=== PATIENT | male | born 2000 | race Two or more races ===

== ENCOUNTER 2021-11-21 11:27 | Emergency (ER) | payer OTHER, SELFPAY ==
[2021-11-21 11:46] VITALS: BP 128/50; PULSE 76; RESP 18; TEMP 36.1; O2SAT 100; BMI 36.0
--- NOTE | 2021-11-21 15:53 | ED_ITS ---
HPI - Back Pain/Injury General Chief Complaint: Back Pain/Injury Stated Complaint: Back pain Time Seen by Provider: 11/21/21 14:49 History of Present Illness HPI Narrative: Patient complains of mid right-sided back pain worse with movement after twisting the wrong way at work 2 days ago, no numbness no weakness no tingling no radiation of pain no changes to bowel or bladder Related Data Previous Rx's Medication Instructions Recorded acetaminophen 500 mg tablet 1,000 mg PO QID PRN pain #30 tabs 11/21/21 ibuprofen 600 mg tablet 600 mg PO Q6H PRN pain #20 tabs 11/21/21 Allergies Allergy/AdvReac Type Severity Reaction Status Date / Time No Known Allergies Allergy Unverified 12/11/19 19:32 [No Known Allergies*] Review of Systems Review of Systems: Positive for back pain worse with movement Negatives are no fever no chills no dizziness or weakness no fainting no feeling faint no headache neck pain or chest pain no shortness of breath no abdominal pain no nausea vomiting or diarrhea no dysuria no frequency no incontinence no changes to bowel or bladder no muscle weakness no difficulty walking no loss of sensation no skin Yes all other systems are reviewed and are negative [facility] Past Medical History Source: nursing notes reviewed Social History Social History Advance Directives: No Advance Directives Information Provided: No Physical Exam Vital Signs: Vital Signs: Last Vital Signs Temp 96.9 F 11/21/21 11:46 Pulse 76 11/21/21 11:46 Resp 18 11/21/21 11:46 BP 128/50 L 11/21/21 11:46 Pulse Ox 100 11/21/21 11:46 O2 Del Method 11/21/21 11:46 BMI result Body Mass Index 36.0 General appearance no discrete distress Head is normocephalic atraumatic Neck is supple Respiratory no distress Abdomen soft nontender The back had tenderness in the right upper mid back, pain easily reproduced with movement There was no CVA tenderness no focal bony tenderness, skin was normal and pain easily reproduced with movement Extremities full range of motion x4 Skin no rash Neuro no focal motor sensory deficits, gait was normal Course Course Course Narrative: Patient with likely back muscle strain is given a work note and analgesics, no neurologic deficits Discharge Plan Discharge Clinical Impression: Back strain Patient Disposition: Home, Self-Care Additional Instructions: You likely strained muscles in her back at work Follow with work connection if needed for work related injury Return any time for any worse condition or concern You could use Tylenol or Motrin as needed This is usually self-limited and gets better by itself in a reasonable time frame an almost all cases Prescriptions: New acetaminophen 500 mg tablet 1,000 mg PO QID PRN (Reason: pain) Qty: 30 0RF ibuprofen 600 mg tablet 600 mg PO Q6H PRN (Reason: pain) Qty: 20 0RF Referrals: [facility] [Provider Group] (Back strain at work) Stand Alone Forms: Work/School Release Interventions: ED Discharge Assessment Last Done: 11/21/21 17:38 Discharge Date/Time: 11/21/21 17:39
== END 2021-11-21 17:39 | disposition home or self-care (01) ==
PROVIDERS: Emergency Provider Emergency Medicine
DX: S29.012A Strain of muscle and tendon of back wall of thorax, initial encounter (principal); X50.1XXA Overexertion from prolonged static or awkward postures, initial encounter; Y93.9 Activity, unspecified; Y92.511 Restaurant or cafe as the place of occurrence of the external cause; Y99.0 Civilian activity done for income or pay
CPT/HCPCS: 99282; 99283

== ENCOUNTER 2021-11-29 17:02 | Emergency (ER) | payer OTHER, SELFPAY ==
--- NOTE | ~2021-11-29 | XR_ITS ---
EXAMINATION: XR LUMBOSACRAL SPINE CLINICAL INFORMATION: Pain for 2 weeks, atraumatic COMPARISON: None TECHNIQUE: Three views of the lumbosacral spine. FINDINGS: Straightening of the normal lumbar lordosis. No subluxation. Vertebral body heights and intervertebral disc heights are maintained. No endplate osteophytes. No pars defects. SI joints appear congruent and intact. No osseous lesion. XR/XR lumbar spine 2-3V IMPRESSION: 1. No subluxation or fracture. 2. Preserved intervertebral disc heights.
[2021-11-29 17:13] VITALS: BP 135/81; PULSE 65; RESP 18; TEMP 36.5; O2SAT 99; BMI 36.0
--- NOTE | 2021-11-29 18:34 | ED.GENADULT ---
HPI - General Adult General Chief complaint: Back Pain/Injury Stated complaint: lower back pain Time Seen by Provider: 11/29/21 18:23 Source: patient History of Present Illness HPI narrative: This is a 21-year-old male complains of pain in his lower back for a few weeks. The patient denies any injury such as lifting or falling. The patient was seen here for this problem on November 21 but states that they told him he does had a muscle strain and prescribed him ibuprofen and acetaminophen. Pain is worse with twisting of his torso. He denies any nausea vomiting, abdominal pain, pain radiating to his legs, numbness or weakness in his legs, urinary continence or incontinence. Related Data Previous Rx's Medication Instructions Recorded acetaminophen 500 mg tablet 1,000 mg PO QID PRN pain #30 tabs 11/21/21 ibuprofen 600 mg tablet 600 mg PO Q6H PRN pain #20 tabs 11/21/21 cyclobenzaprine 10 mg tablet 10 mg PO TID PRN muscle spasm #20 11/29/21 tabs ibuprofen 600 mg tablet 600 mg PO Q6H PRN pain #30 tabs 11/29/21 Allergies Allergy/AdvReac Type Severity Reaction Status Date / Time No Known Allergies Allergy Unverified 12/11/19 19:32 [No Known Allergies*] Review of Systems Review of Systems: Yes all other systems are reviewed and are negative Constitutional: Constitutional: Reports as per HPI and Denies fever(s) Eyes: Eyes: Reports as per HPI and Reports no additional eye complaints ENT: Reports system reviewed and no additional complaints, except as documented, Reports as per HPI, Denies nasal congestion, Denies nasal discharge and Denies sore throat Cardiovascular: Cardiovascular: Reports as per HPI, Denies chest pain and Denies dyspnea Respiratory: Respiratory: Reports as per HPI, Denies cough and Denies dyspnea Gastrointestinal: Gastrointestinal: Reports as per HPI, Denies abdominal pain, Denies diarrhea and Denies vomiting Genitourinary: Genitourinary: Reports as per HPI, Denies hematuria, Denies dysuria and Denies urinary frequency Musculoskeletal: Musculoskeletal: Reports no additional musculoskeletal complaints, Reports back pain and Denies numbness Integumentary/Breasts: Skin/Breast: Reports as per HPI and Denies rash Neurologic: Reports as per HPI, Denies focal weakness and Denies numbness Psychiatric: Psychiatric: Reports no additional psychiatric complaints and Reports as per HPI Endocrine: Endocrine: Reports no additional endocrine complaints and Reports as per HPI Hematologic/Lymphatic: Hematologic/Lymphatic: Reports no additional hematologic/lymphatic complaints, Reports as per HPI and Reports other (No peripheral edema) [facility] Past Medical History Medical History (Updated 11/29/21 @ 22:55 by Genrao Pepper MD) Asthma Surgical History (Updated 11/29/21 @ 21:33 by Faith Peace) Hx of appendectomy Social History Social History Patient Tobacco Use Status: Current someday Tobacco user Smoked in Last 30 Days: Yes Use of substances other than those prescribed or required for medical reasons: No Advance Directives: No Advance Directives Information Provided: No Physical Exam ED Vital Signs: Vital Signs - 24 hr 11/29/21 17:13 11/29/21 21:30 Temperature 97.7 F 97.1 F Pulse Rate 65 57 Respiratory Rate 18 15 Blood Pressure 135/81 122/66 Pulse Oximetry 99 98 Oxygen Delivery Method Room Air Room Air BMI result Body Mass Index 36.0 Const Other: Patient sitting up in a chair. No tenderness to the lumbar spine or to the lumbar back in the musculature. Straight leg test negative bilaterally. General: no acute distress Orientation/consciousness: patient oriented x3 HENMT Head: Yes normal to inspection General nose exam: Normal external nose present Mouth: moist mucous membranes Throat: Yes posterior oropharynx normal, Yes tonsils normal and Yes uvula midline Eyes Eyelids: Yes eyelids normal Conjunctivae: conjunctivae normal Pupils: Equal, round and reactive pupils present Neck Neck: Yes supple Resp Effort & Inspection: normal respiratory effort Auscultation: clear to auscultation bilaterally Cardio Rate: regular rate Rhythm: regular rhythm Heart sounds: S1 normal heart sound present, S2 normal heart sound present, no gallops, no murmurs and no rubs GI Inspection: No distended Palpation (GI): Soft to palpation and nontender Auscultation: normal bowel sounds Skin General skin exam: other (Warm and dry) Neuro General: patient oriented x3 and CN's II-XI intact bilaterally Cranial nerves: Yes Equal, round and reactive pupils present Extrem General: Yes no pedal edema Psych Affect: normal affect Attitude: cooperative Medical Decision Making MDM Narrative Medical decision making narrative: Patient with low back pain for few weeks, has tried ibuprofen without relief. Patient does not seem to be much pain on exam, with no focal tenderness, negative straight leg test. LS-spine x-ray showed no concerning findings. Urinalysis was negative. Patient will be prescribed ibuprofen and Flexeril Lab Data Lab results reviewed: Yes I reviewed the patient's lab results. Labs: Lab Results 11/29/21 Range/Units 21:42 Urine Color Yellow Urine Appearance Clear Urine pH 6.5 (5.0-9.0) Ur Specific Amelia 1.010 (1.005-1.025) Urine Protein Negative (Neg-Trace) mg/dL Urine Glucose (UA) Negative (Negative) mg/dL Urine Ketones Negative (Negative) mg/dL Urine Blood Negative (Negative) Urine Nitrite Negative (Negative) Ur Leukocyte Esterase Negative (Negative) Imaging Data Lumbar spine x-ray: Radiologist's impression: IMPRESSION: ? 1. No subluxation or fracture. 2. Preserved intervertebral disc heights. Discharge Plan Discharge Clinical Impression: Low back pain Patient Disposition: Home, Self-Care Instructions: Acute Low Back Pain (ED) Additional Instructions: Use the ibuprofen and cyclobenzaprine as prescribed. Try to rest your back. Follow up with her primary care physician Prescriptions: New ibuprofen 600 mg tablet 600 mg PO Q6H PRN (Reason: pain) Qty: 30 0RF cyclobenzaprine 10 mg tablet 10 mg PO TID PRN (Reason: muscle spasm) Qty: 20 0RF No Action acetaminophen 500 mg tablet 1,000 mg PO QID PRN (Reason: pain) Qty: 30 0RF ibuprofen 600 mg tablet 600 mg PO Q6H PRN (Reason: pain) Qty: 20 0RF Interventions: ED Discharge Assessment Last Done: 11/29/21 23:01 Discharge Date/Time: 11/29/21 23:01
[2021-11-29 21:30] VITALS: BP 122/66; PULSE 57; RESP 15; TEMP 36.2; O2SAT 98
[2021-11-29 21:54] LABS: Appearance Urine Clear; Color Urine Yellow; Glucose Urine UA Negative (Negative); Leukocyte Esterase Urine Negative (Negative); Nitrite Urine Negative (Negative); PH 6.5 (5.0-9.0); Urine Blood Negative (Negative); Urine Ketones Negative (Negative); Urine Protein Negative (Neg-Trace)
== END 2021-11-29 23:01 | disposition home or self-care (01) ==
PROVIDERS: Emergency Provider Emergency Medicine
DX: M54.50 Low back pain, unspecified (principal); F17.200 Nicotine dependence, unspecified, uncomplicated; Z71.6 Tobacco abuse counseling; Z79.899 Other long term (current) drug therapy
CPT/HCPCS: 72100; 81003; 99283; 99284

== ENCOUNTER 2022-11-30 09:10 | Emergency (ER) | payer OTHER, SELFPAY ==
[2022-11-30 09:30] VITALS: BP 126/51; PULSE 68; RESP 16; TEMP 36.9; O2SAT 98; BMI 35.6
--- NOTE | 2022-11-30 10:12 | ED.GENADULT ---
HPI - General Adult General Chief complaint: General Medical Stated complaint: lump in throat Time Seen by Provider: 11/30/22 10:01 Source: patient Mode of arrival: ambulatory Limitations: no limitations History of Present Illness HPI narrative: 22-year-old male lesion to lower left lip, patient reports that started about 3 days ago, since then he has noted a small lump under his left chin region, he reports the lesions started as a pimple, he tried to pop it and then it got worse. Denies fevers, chills, sore throat, nausea, vomiting, abdominal pain, chest pain, shortness of breath, difficulty swallowing. Related Data Previous Rx's Medication Instructions Recorded acetaminophen 500 mg tablet 1,000 mg (2 x 500 mg) PO QID PRN 11/21/21 pain #30 tabs ibuprofen 600 mg tablet 600 mg PO Q6H PRN pain #20 tabs 11/21/21 cyclobenzaprine 10 mg tablet 10 mg PO TID PRN muscle spasm #20 11/29/21 tabs ibuprofen 600 mg tablet 600 mg PO Q6H PRN pain #30 tabs 11/29/21 doxycycline hyclate 100 mg capsule 100 mg PO BID 10 days #20 caps 11/30/22 prednisone 20 mg tablet 20 mg PO DAILY 5 days #5 tabs 11/30/22 Allergies Allergy/AdvReac Type Severity Reaction Status Date / Time No Known Allergies Allergy Unverified 12/11/19 19:32 [No Known Allergies*] Review of Systems Review of Systems: Constitutional : No Weight loss, No Fever, No Chills, No Fatigue, No Malaise ENT/Mouth : No sore throat, No Rhinorrhea, + lump under chin, Eyes: No Eye Pain, No Swelling, No Redness Cardiovascular : No Chest Pain, No SOB, No Dyspnea on Exertion, No Orthopnea, No Edema, No Palpitations Respiratory : No Cough, No Sputum, No Wheezing Gastrointestinal : No Nausea, No Vomiting, No Diarrhea, No Constipation, No abdominal Pain, No Hematochezia, No Melena Genitourinary : No Dysuria, No Urinary Frequency, No Hematuria, Musculoskeletal : No joint pain, No Myalgias, No Joint Swelling Skin : No Skin Lesions, No rash Neuro : No Weakness, No Numbness, No Dizziness, No Headache All other systems reviewed and are negative Yes all other systems are reviewed and are negative PMFSH Past Medical History Attestation statement: The following information was validated with the patient. Source: old records reviewed and nursing notes reviewed Medical History Asthma Surgical History Hx of appendectomy Social History Social History Patient Tobacco Use Status: Current someday Tobacco user Advance Directives: No Physical Exam ED Vital Signs: Vital Signs - 24 hr 11/30/22 09:30 Temperature 98.4 F Pulse Rate 68 Respiratory Rate 16 Blood Pressure 126/51 L Pulse Oximetry 98 Oxygen Delivery Method Room Air BMI result Body Mass Index 35.6 vss Appearance: Alert.? Oriented X3.? No acute distress.? Head: Normocephalic, atraumatic, no step-offs or deformities Eyes: Pupils equal, round and reactive to light.? ENT: Pharynx normal. Patent airway uvula midline. Normal tonsils b/l. + healing pimple to left lower lip. + LAD to L sub mandibular region. Speaking in full sentences controlling secretions well. Neck: Normal inspection.? Neck supple.? CVS: Normal heart rate and rhythm.? Pulses normal.? Respiratory: No respiratory distress.? Breath sounds normal.? Abdomen: Soft and nontender.? Skin: Skin warm and dry.? Normal skin color.? Normal skin turgor.? Extremities: No lower extremity edema.? No calf ttp. 5/5 strength to bilateral upper and lower extremities Neuro: Oriented X 3.? No motor deficit.? No sensory deficit. CN 2-12 intact Medical Decision Making Medical Decision Making [facility] Narrative: 1014 22 year old male presents w/ lesion to R lower lip and lymphadenopathy X 3 days PE w/ Pharynx normal. Patent airway uvula midline. Normal tonsils b/l. + healing pimple to left lower lip. + LAD to L sub mandibular region. Speaking in full sentences controlling secretions well. This was likely pimple that patient messed with an turned in to open wound, now healing. No signs of abscess at this time, likely reactive lymphadenopathy to left sub mandibular region no signs of gangrene, neck for testing infection, airway compromise threat to her airway. Plan will discharge on low-dose prednisone And doxycycline Differential Diagnosis Differential Diagnoses: The differential diagnosis associated with the presentation includes This was likely pimple that patient messed with an turned in to open wound, now healing. No signs of abscess at this time, likely reactive lymphadenopathy to left sub mandibular region no signs of gangrene, neck for testing infection, airway compromise threat to her airway. Admission/Observation Consideration of admission/observation: Escalation of care including admission/observation considered unlikely Critical Care Time Critical Care Time Critical Care Time: No Discharge Plan Discharge Clinical Impression: Lesion of lip, Lymphadenopathy Patient Disposition: Home, Self-Care Instructions: Lymphadenopathy (ED) Additional Instructions: Take your medications as prescribed. If you were prescribed antibiotics today, it is important that you take your medication to their entirety, do not skip any doses, do not finish them early. Follow-up with your primary care provider this week. Return to the emergency department with new or worsening symptoms. Such as fevers, chills, chest pain, shortness of breath, nausea, vomiting, dizziness, headache, vision changes, lethargy In case of emergency call 911 Prescriptions: New doxycycline hyclate 100 mg capsule 100 mg PO BID 10 Days Qty: 20 0RF prednisone 20 mg tablet 20 mg PO DAILY 5 Days Qty: 5 0RF No Action acetaminophen 500 mg tablet 1,000 mg PO QID PRN (Reason: pain) Qty: 30 0RF ibuprofen 600 mg tablet 600 mg PO Q6H PRN (Reason: pain) Qty: 20 0RF ibuprofen 600 mg tablet 600 mg PO Q6H PRN (Reason: pain) Qty: 30 0RF cyclobenzaprine 10 mg tablet 10 mg PO TID PRN (Reason: muscle spasm) Qty: 20 0RF Referrals: Physician,None [Primary Care Provider] - 2 days Stand Alone Forms: Work/School Release
[2022-11-30 10:15] VITALS: BP 109/48; PULSE 83; RESP 16; O2SAT 97
== END 2022-11-30 11:06 | disposition home or self-care (01) ==
PROVIDERS: Emergency Provider Emergency Medicine
DX: K13.0 Diseases of lips (principal); R59.1 Generalized enlarged lymph nodes; F17.210 Nicotine dependence, cigarettes, uncomplicated; Z71.6 Tobacco abuse counseling; Z79.899 Other long term (current) drug therapy
CPT/HCPCS: 99283

== ENCOUNTER 2024-05-14 13:04 | Emergency (ER) | payer OTHER, SELFPAY ==
[2024-05-14 13:45] VITALS: BP 125/80; PULSE 69; RESP 16; TEMP 36.6; O2SAT 98; BMI 35.0
--- NOTE | 2024-05-14 13:48 | ED_ITS ---
HPI - General Adult General Chief complaint: Upper Respiratory Symptoms Stated complaint: Congestion, Cough Time Seen by Provider: 05/14/24 16:07 Source: patient Mode of arrival: ambulatory Limitations: no limitations History of Present Illness ED Provider: Dr. Corrina Miranda HPI narrative: Patient comes to the emergency room complaining of runny nose, cough for over a month. Patient states that he has been coughing or sneezing so hard that once, he noticed bloody singed sputum. Otherwise: Patient denies any chest pain or shortness of breath. Patient states that he has history of asthma, he has not had full exacerbations but does use his inhaler. Patient states that for years he has not use the inhaler but lately he has been using a few times Related Data Previous Rx's ?Medication ?Instructions ?Recorded acetaminophen 500 mg tablet 1,000 mg (2 x 500 mg) PO QID PRN 11/21/21 pain #30 tabs ibuprofen 600 mg tablet 600 mg PO Q6H PRN pain #20 tabs 11/21/21 cyclobenzaprine 10 mg tablet 10 mg PO TID PRN muscle spasm #20 11/29/21 tabs ibuprofen 600 mg tablet 600 mg PO Q6H PRN pain #30 tabs 11/29/21 doxycycline hyclate 100 mg capsule 100 mg PO BID 10 days #20 caps 11/30/22 prednisone 20 mg tablet 20 mg PO DAILY 5 days #5 tabs 11/30/22 albuterol sulfate 90 mcg/actuation 2 puff inhalation Q4-6H PRN 05/14/24 aerosol inhaler shortness of breath or wheezing #8.5 grams prednisone 50 mg tablet 50 mg PO DAILY #4 tabs 05/14/24 Allergies Allergy/AdvReac Type Severity Reaction Status Date / Time No Known Allergies Allergy Verified 05/14/24 13:47 [No Known Allergies*] Review of Systems Review of Systems: Constitutional : No Weight loss, No Fever, No Chills, No Night Sweats, No Fatigue, No Malaise ENT/Mouth : No Hearing loss, No Ear Pain, No Nasal Congestion, No Sinus Pain, No Hoarseness, complaining of sore throat, complaining of Rhinorrhea, No Swallowing Difficulty Eyes: No Eye Pain, No Swelling, No Redness, No Foreign Body, No Discharge, No Vision Changes Cardiovascular : No Chest Pain, No SOB, No Dyspnea on Exertion, No Orthopnea, No Edema, No Palpitations Respiratory : No Cough, No Sputum, complaining of Wheezing, No Smoke Exposure, No Dyspnea Gastrointestinal : No Nausea, No Vomiting, No Diarrhea, No Constipation, No abdominal Pain, No Hematochezia, No Melena Genitourinary : no irregular bleeding, No Dysuria, No Urinary Frequency, No Hematuria, No Urinary Incontinence, No Urgency, No Flank Pain, No Urinary Flow Changes, No Hesitancy Musculoskeletal : No joint pain, No Myalgias, No Joint Swelling Skin : No Skin Lesions, No rash Neuro : No Weakness, No Numbness, No Paresthesias, No Loss of Consciousness, No Dizziness, No Headache Psych : No Anxiety/Panic, No Depression, No SI/HI/AH/VH, No Social Issues, Heme/Lymph: No Bruising, No Bleeding,No Lymphadenopathy Endocrine : No Polyuria, No Polydipsia, No Temperature Intolerance PMFSH Past Medical History Medical History Asthma Surgical History Hx of appendectomy Social History Social History Alcohol intake: current Alcohol intake frequency: holidays/special occasions only Patient Tobacco Use Status: Current someday Tobacco user Substance Use Type: Marijuana Advance Directives: No Advance Directives Information Provided: Yes Physical Exam ED Vital Signs: Vital Signs - 24 hr 05/14/24 13:45 Temperature 97.8 F Pulse Rate 69 Respiratory Rate 16 Blood Pressure 125/80 Pulse Oximetry 98 Oxygen Delivery Method Room Air BMI result Body Mass Index 35.0 Const Other: Appearance: Alert. Oriented X3. No acute distress. Eyes: Pupils equal, round and reactive to light. ENT: Pharynx normal. Neck: Normal inspection. Neck supple. No lymph nodes noted. No crepitus CVS: Normal heart rate and rhythm. Pulses normal. Normal S1 and S2 Respiratory: No respiratory distress. Breath sounds normal. No Wheezing. No rales Abdomen: Soft and nontender. No rigidity. No distention. Skin: Skin warm and dry. Normal skin color. Normal skin turgor. Extremities: No lower extremity edema. No Lacerations. No Rash Neuro: Oriented X 3. No motor deficit. No sensory deficit. Moving all extremities. No slurred speech. CN 2 through 12 grossly intact Psych: calm, cooperative, normal affect Course Course Course Narrative: RME, this is a rapid medical exam performed by Paul Esparza please refer to primary provider for complete H&P- patient reports flu-like symptoms for the last couple of days. Patient had minimal blood in his nasal discharge. No active epistaxis. Plan for viral swabs, he is well-appearing Medical Decision Making Medical Decision Making MDM Narrative: My interpretation of labs: Patient's labs negative for influenza a and B, RSV and COVID Patient's lungs are clear. Patient was given the 1st dose of prednisone p.o. in the emergency room. At this time, patient does not need not nebulization treatment, patient is not wheezing, has good air movement, normal vitals, oxygen saturation 98% on room air Lab Data Labs: Lab Results 05/14/24 Range/Units 14:56 Influenza Type A (PCR) NEGATIVE (Negative) Influenza Type B (PCR) NEGATIVE (Negative) RSV RNA Qual (PCR) NEGATIVE (Negative) SARS-CoV-2 RNA (RT-PCR) NEGATIVE (Negative) Discharge Plan Discharge Clinical Impression: Viral URI, Asthma Patient Disposition: Home, Self-Care Instructions: Asthma (ED), Viral Syndrome (ED) Additional Instructions: Please follow-up with your primary care physician tomorrow. If you have any worsening or new symptoms, please return to the emergency room or call 911 Prescriptions: New prednisone 50 mg tablet 50 mg PO DAILY Qty: 4 0RF albuterol sulfate 90 mcg/actuation HFA aerosol inhaler 2 puff inhalation Q4-6H PRN (Reason: shortness of breath or wheezing) Qty: 8.5 1RF No Action acetaminophen 500 mg tablet 1,000 mg PO QID PRN (Reason: pain) Qty: 30 0RF ibuprofen 600 mg tablet 600 mg PO Q6H PRN (Reason: pain) Qty: 20 0RF ibuprofen 600 mg tablet 600 mg PO Q6H PRN (Reason: pain) Qty: 30 0RF cyclobenzaprine 10 mg tablet 10 mg PO TID PRN (Reason: muscle spasm) Qty: 20 0RF doxycycline hyclate 100 mg capsule 100 mg PO BID 10 Days Qty: 20 0RF prednisone 20 mg tablet 20 mg PO DAILY 5 Days Qty: 5 0RF Print Language: Occitan
[2024-05-14 15:38] LABS: Influenza A PCR NEGATIVE (Negative); Influenza B PCR NEGATIVE (Negative); Resp Syncy Virus RNA Qual PCR NEGATIVE (Negative); SARS COV2 PCR INHOUSE NEGATIVE (Negative)
[2024-05-14] MEDS: predniSONE 10 MG TABLET 50 MG PO (16:31)
[2024-05-14 16:32] VITALS: BP 125/80; PULSE 69; RESP 16; TEMP 36.6; O2SAT 98
== END 2024-05-14 16:33 | disposition home or self-care (01) ==
PROVIDERS: Physician Assistant; Emergency Provider Emergency Medicine
DX: B34.9 Viral infection, unspecified (principal); J45.909 Unspecified asthma, uncomplicated; R05.9 Cough, unspecified; Z03.818 Encounter for observation for suspected exposure to other biological agents ruled out
CPT/HCPCS: 0241U; 99282; 99283